=== PATIENT | male | born 1975 | race Caucasian/White ===

== ENCOUNTER → 2016-07-13 | Outpatient (CLI) | payer MEDICARE | LOC: KOH-I 08:41 | DX: M54.5 Low back pain (principal); M54.2 Cervicalgia; M47.812 Spondylosis without myelopathy or radiculopathy, cervical region; Z98.890 Other specified postprocedural states | CPT/HCPCS: 72050; 72110 ==

== ENCOUNTER → 2021-06-11 | Outpatient (CLI) | payer MEDICARE ==
[2021-06-11 09:42] LABS: RED BLOOD COUNT 4.7 M/UL (4.20-5.50); WHITE BLOOD COUNT 7.6 K/UL (4.5-11.0)
[2021-06-12 09:15] LABS: A/G RATIO 1.5 (1.2-2.2); ALKALINE PHOSPHATASE, S 116 IU/L (44-121); ALT (SGPT) 35 IU/L (0-44); AST (SGOT) 25 IU/L (0-40); BILIRUBIN, TOTAL 0.6 mg/dL (0.0-1.2); BUN 11 mg/dL (6-24); BUN/CREATININE RATIO 12 (9-20); CALCIUM, SERUM 8.9 mg/dL (8.7-10.2); CARBON DIOXIDE, TOTAL 23 mmol/L (20-29); CHLORIDE, SERUM 104 mmol/L (96-106); CREATININE, SERUM 0.91 mg/dL (0.76-1.27); EGFR IF AFRICN AM 116 (>59); EGFR IF NONAFRICN AM 101 (>59); GLOBULIN, TOTAL 2.6 g/dL (1.5-4.5); GLUCOSE, SERUM 90 mg/dL (65-99); POTASSIUM, SERUM 4.4 mmol/L (3.5-5.2); PROTEIN, TOTAL, SERUM 6.5 g/dL (6.0-8.5); SODIUM, SERUM 143 mmol/L (134-144)
[2021-06-13 11:15] LABS: CHOLESTEROL, TOTAL 185 mg/dL (100-199); HDL SIZE 8.1 nm (>=9.2); HDL-C 29 mg/dL (>39); HDL-P (TOTAL) 21.6 umol/L (>=30.5); LARGE HDL-P <1.3 umol/L (>=4.8); LARGE VLDL-P 3.8 nmol/L (<=2.7); LDL SIZE 21.2 nm (>20.5); LDL SIZE 21.2 nm (>=20.8); LDL-C 138 mg/dL (0-99); LDL-P 1658 nmol/L (<1000); LP-IR SCORE 76 (<=45); SMALL LDL-P 697 nmol/L (<=527); TRIGLYCERIDES 98 mg/dL (0-149); VLDL SIZE 53.7 nm (<=46.6)
[2021-06-14 14:11] LABS: TESTOSTERONE, SERUM 402 ng/dL (264-916)
== END ==
LOC: LAB 08:39
PROVIDERS: Emergency Medicine
DX: I10 Essential (primary) hypertension (principal); K21.9 Gastro-esophageal reflux disease without esophagitis; E78.2 Mixed hyperlipidemia; M51.36 Other intervertebral disc degeneration, lumbar region; E03.8 Other specified hypothyroidism; R53.83 Other fatigue
CPT/HCPCS: 36415; 80053; 80061; 83704; 84402; 84403; 84443; 84550; 85025

== ENCOUNTER → 2021-07-11 | Outpatient (CLI) | payer MEDICARE ==
[2021-07-12 08:14] LABS: FSH 5.3 mIU/mL (1.5-12.4); LUTEINIZING HORMONE(LH) 4.7 mIU/mL (1.7-8.6); PROLACTIN 9.7 ng/mL (4.0-15.2)
[2021-07-15 15:15] LABS: TESTOSTERONE, SERUM 357 ng/dL (264-916)
== END ==
LOC: LAB 08:33
PROVIDERS: Emergency Medicine
DX: E29.1 Testicular hypofunction (principal)
CPT/HCPCS: 36415; 83001; 83002; 84146; 84402; 84403